=== PATIENT | male | born 1950 | race Caucasian/White ===

== ENCOUNTER 2019-07-17 09:57 | Inpatient (IN) ==
[2019-07-17 10:22] LABS: BASO# 0.06 X1000 (0.0-0.2); BASO% 0.5 % (0.0-0.8); EOS# 0.11 X1000 (0.0-0.7); EOS% 0.9 % (0.0-10.0); HEMATOCRIT 39.4 % (42.0-52.0); IMM GRAN# 0.02 X1000 (0.0-0.04); IMM GRAN% 0.2 % (0.0-0.5); LYMPH# 1.37 X1000 (1.2-3.4); MCH 30.7 PG (27-31); MCV 93.1 FL (81-99); MONO# 0.96 X1000 (0.11-0.59); MONO% 7.7 % (1.7-9.3); MPV 10.9 FL (7.4-10.4); NEUT% 79.7 % (42.2-75.2); PLT 225 X1000 (130-400); RBC 4.23 XMIL (4.7-6.1); RDW 14.2 % (11.5-14.5); WBC 12.42 X1000 (4.8-10.8)
--- NOTE | 2019-07-17 10:22 | PROVIDER DOCUMENTATION ---
HPI-Syncope/Dizziness - General Chief Complaint: Syncope Stated Complaint: FALL + LOC Time Seen by Provider: 07/17/19 10:01 Source: patient Allergies/Adverse Reactions: Patient Allergies Allergy/AdvReac Type Severity Reaction Status Date / Time No Known Allergies Allergy Verified 07/17/19 10:23 Home Medications: Home Medication List Medication Instructions Recorded Confirmed Last Taken Type Carvedilol 12.5 tab PO BID 05/28/15 07/17/19 07/16/19 History Ascorbate Calcium [Vitamin C] 1,000 mg PO BID 04/24/16 07/17/19 07/16/19 History Fish Oil/Dha/Epa [Fish Oil 1,200 1 each PO BID 04/24/16 07/17/19 07/16/19 History mg Fish Oil] Furosemide [Lasix] 20 mg PO DIRECTED 04/24/16 07/17/19 07/15/19 History Metformin HCl 2 tab PO BID 04/24/16 07/17/19 07/16/19 History Multivit-Min/FA/Lycopen/Lutein 1 each PO DAILY 04/24/16 07/17/19 07/16/19 History [Centrum Silver Tablet] Potassium Chloride 80 meq PO DIRECTED 04/24/16 07/17/19 07/15/19 History Tamsulosin HCl 0.4 mg PO DAILY 04/24/16 07/17/19 07/16/19 History Nitroglycerin [Nitrostat] 0.4 mg SL PRN PRN 11/14/16 07/17/19 Unknown History Amiodarone [Cordarone] 200 mg PO DAILY 04/05/18 07/17/19 07/16/19 History Apixaban [Eliquis] 2.5 mg PO BID 04/05/18 07/17/19 07/16/19 History Fexofenadine [Natasha] 180 mg PO DAILY 04/05/18 04/05/18 04/05/18 09:00 History Fluticasone 50 Mcg Nasal [place] 1 spray [place] DAILY 04/05/18 07/17/19 07/16/19 History [Flonase] Gabapentin 100 mg PO BID 04/05/18 07/17/19 07/16/19 History Atorvastatin Calcium [Lipitor] 1 tab PO DAILY 07/17/19 07/17/19 07/16/19 History Cetirizine HCl [Zyrtec] 1 cap PO DAILY 07/17/19 07/17/19 07/16/19 History Clopidogrel Bisulfate [Plavix] 1 tab PO DAILY 07/17/19 07/17/19 07/16/19 History Finasteride [Proscar] 1 tab PO DAILY 07/17/19 07/17/19 07/16/19 History - History of Present Illness-Syncope/Dizzy Nature of Presenting Problem: 69yom present to ER via EMS with c/o syncopal episode. Pt reports he went to restroom and had a BM and was walking into the living room when he passed out. Denies n/v. Reports some dizziness. Pt is on plavix and eliquis. Reports hx of CVA, afib, and pacemaker. pt A&Ox3 at present. O2 sat on arrival 85%, pt placed on 4L to increase to 92%. Prior Episodes: reports: single episode today Onset/Duration: reports: just prior to arrival Symptoms prior to episode: reports: lightheaded Context: reports: collapsed Loss of Consciousness: brief (seconds) Location of injury. (If syncope resulted in an injury.): reports: head (frontal) Current Symptoms: reports: short of breath, dizzy, headache. denies: fever, ch ills, nausea - Dizziness Dizziness Related Current/Associated Symptoms: reports: weakness, dizzy, lightheaded, syncope. denies: nausea/vomiting, blurred vision Review of Systems - Adult - REVIEW OF SYSTEMS - ADULT Constitutional: reports: no symptoms reported. denies: chills, fever Eyes: reports: no symptoms reported Ears, Nose, Mouth & Throat: reports: no symptoms reported Cardiovascular: reports: no symptoms reported. denies: chest pain Respiratory: reports: see HPI, shortness of breath Gastrointestinal: reports: no symptoms reported. denies: nausea, vomiting Genitourinary: reports: no symptoms reported Musculoskeletal: reports: no symptoms reported Integumentary: reports: no symptoms reported Neurological: reports: see HPI, dizziness/vertigo, syncope. denies: headache/migraines, numbness, paresthesia Psychiatric: reports: no symptoms reported Endocrine: reports: no symptoms reported Hematologic/Lymphatic: reports: no symptoms reported Allergic/Immunologic: reports: no symptoms reported All Other Systems: Reviewed and Negative Past History - Adult - PAST MEDICAL HISTORY-ADULT Review of Records: reports: Old Records Reviewed, Nursing Assessment Review, Medications Reviewed, Social history reviewed & non-contributory. Major Childhood Illnesses: reports: denies history Cardiovascular: reports: cardiac disease, A-Fib, HTN, hyperlipidemia, [place], pacemaker, other (cardiac arrest, CABG) Respiratory: reports: denies history Gastrointestinal: reports: denies history Obstetrical/Gynecological: reports: denies history Genitourinary: reports: denies history Musculoskeletal: reports: denies history Neurological: reports: CVA Endocrine/Immune: reports: Diabetes Other Conditions: reports: denies history Physical Exam-General - PHYSICAL EXAM-ADULT Initial Vital Signs Reviewed: Yes - CONSTITUTIONAL General Appearance: alert, mild distress - EYES Eyes: pink conjunctivae - HEAD, EARS, NOSE, MOUTH & THROAT HENMT: moist mucous membranes, normal ENT inspection - NECK Neck: non-tender, full range of motion, supple, normal inspection. negative: C- spine tenderness - RESPIRATORY Respiratory: lungs clear, normal breath sounds, no respiratory distress, no accessory muscle use - CARDIOVASCULAR Cardiovascular: no edema, irregularly irregular - GASTROINTESTINAL (ABDOMEN) Abdominal Exam: normal bowel sounds, non tender, soft - MUSCULOSKELETAL Back Exam: normal inspection Extremity: normal range of motion, normal inspection, no pedal edema, no calf tenderness. negative: deformity, erythema - SKIN Integumentary: normal color, warm/dry. negative: diaphoresis, ecchymosis, jaundice - NEUROLOGIC Neurologic: grossly normal, no motor/sensory deficits, other (R arm weakness from previous CVA) - PSYCHIATRIC Psych/Mental Status: oriented x 3 Progress - PLAN OF CARE/RESULTS Progress/Plan/Lab Results: Vital Signs - 8 hr 07/17/19 10:15 07/17/19 11:01 07/17/19 11:30 Temperature 97.8 F Pulse Rate 85 90 89 Respiratory Rate 20 20 20 Blood Pressure 143/91 138/86 137/83 O2 Sat by Pulse Oximetry 85 L 96 97 Laboratory Results - last 24 hr 07/17/19 07/17/19 07/17/19 10:10 10:10 10:10 WBC 12.42 H RBC 4.23 L Hgb 13.0 L Hct 39.4 L MCV 93.1 MCH 30.7 MCHC 33.0 RDW Std Deviation 14.2 Plt Count 225 MPV 10.9 H Immature Gran % (Auto) 0.2 Neut % (Auto) 79.7 H Lymph % (Auto) 11.0 L [place] % (Auto) 7.7 Eos % (Auto) 0.9 Baso % (Auto) 0.5 Immature Gran # (Auto) 0.02 Neut # (Auto) 9.90 H Lymph # (Auto) 1.37 Ector # (Auto) 0.96 H Eos # (Auto) 0.11 Baso # (Auto) 0.06 PT 14.7 INR 1.13 PTT (Actin FS) 27.8 D-Dimer, Quantitative Sodium 137 Potassium 4.7 Chloride 101 Carbon Dioxide 20 L Anion Gap 16 BUN 11 Creatinine 1.0 Estimated GFR/1.73 m2 > 60 BUN/Creatinine Ratio 11 Glucose 177 H Calculated Osmolality 278 Calcium 9.0 Magnesium Total Bilirubin 1.66 H AST 27 ALT 28 Alkaline Phosphatase 63 Creatine Kinase 103 Troponin T Ogs-[id number]-Xowkdyybiha Pept Total Protein 7.3 Albumin 4.6 Globulin 2.7 Albumin/Globulin Ratio 1.7 Plasma Lactate Urine Source Urine Color Urine Turbidity Urine pH Ur Specific [place] Urine Protein Ur Glucose (Stick) Ur Ketones (Stick) Urine Blood Urine Nitrite Urine Bilirubin Urobilinogen Dipstick Urine Leukocytes Urine WBC (Auto) Urine RBC (Auto) U Epithel Cells (Auto) Urine Bacteria (Auto) Urine Opiates Screen Ur Oxycodone Screen Ur Methadone, Qual Ur Barbiturates Screen Ur Phencyclidine Scrn Ur Amphetamines Screen U Benzodiazepines Scrn Urine Cocaine Screen U Cannabinoids Screen 07/17/19 07/17/19 07/17/19 10:10 10:10 10:10 WBC RBC Hgb Hct MCV MCH MCHC RDW Std Deviation Plt Count MPV Immature Gran % (Auto) Neut % (Auto) Lymph % (Auto) [place] % (Auto) Eos % (Auto) Baso % (Auto) Immature Gran # (Auto) Neut # (Auto) Lymph # (Auto) [place] # (Auto) Eos # (Auto) Baso # (Auto) PT INR PTT (Actin FS) D-Dimer, Quantitative 0.29 Sodium Potassium Chloride Carbon Dioxide Anion Gap BUN Creatinine Estimated GFR/1.73 m2 BUN/Creatinine Ratio Glucose Calculated Osmolality Calcium Magnesium Total Bilirubin AST ALT Alkaline Phosphatase Creatine Kinase Troponin T 0.010 Jrb-[id number]-Qkotvnbjjmc Pept 2634 H Total Protein Albumin Globulin Albumin/Globulin Ratio Plasma Lactate Urine Source Urine Color Urine Turbidity Urine pH Ur Specific [place] Urine Protein Ur Glucose (Stick) Ur Ketones (Stick) Urine Blood Urine Nitrite Urine Bilirubin Urobilinogen Dipstick Urine Leukocytes Urine WBC (Auto) Urine RBC (Auto) U Epithel Cells (Auto) Urine Bacteria (Auto) Urine Opiates Screen Ur Oxycodone Screen Ur Methadone, Qual Ur Barbiturates Screen Ur Phencyclidine Scrn Ur Amphetamines Screen U Benzodiazepines Scrn Urine Cocaine Screen U Cannabinoids Screen 07/17/19 07/17/19 07/17/19 10:10 10:57 12:24 WBC RBC Hgb Hct MCV MCH MCHC RDW Std Deviation Plt Count MPV Immature Gran % (Auto) Neut % (Auto) Lymph % (Auto) [place] % (Auto) Eos % (Auto) Baso % (Auto) Immature Gran # (Auto) Neut # (Auto) Lymph # (Auto) [place] # (Auto) Eos # (Auto) Baso # (Auto) PT INR PTT (Actin FS) D-Dimer, Quantitative Sodium Potassium Chloride Carbon Dioxide Anion Gap BUN Creatinine Estimated GFR/1.73 m2 BUN/Creatinine Ratio Glucose Calculated Osmolality Calcium Magnesium 1.3 L Total Bilirubin AST ALT Alkaline Phosphatase Creatine Kinase Troponin T [id number]-A-Ojwktrycdqr Pept Total Protein Albumin Globulin Albumin/Globulin Ratio Plasma Lactate 2.8 H Urine Source CLEAN CATCH Urine Color YELLOW Urine Turbidity CLEAR Urine pH 6.5 Ur Specific [place] 1.008 Urine Protein TRACE A Ur Glucose (Stick) NEGATIVE Ur Ketones (Stick) NEGATIVE Urine Blood NEGATIVE Urine Nitrite NEGATIVE Urine Bilirubin NEGATIVE Urobilinogen Dipstick NORMAL Urine Leukocytes NEGATIVE Urine WBC (Auto) <10 Urine RBC (Auto) <10 U Epithel Cells (Auto) <10 Urine Bacteria (Auto) NEGATIVE Urine Opiates Screen Ur Oxycodone Screen Ur Methadone, Qual Ur Barbiturates Screen Ur Phencyclidine Scrn Ur Amphetamines Screen U Benzodiazepines Scrn Urine Cocaine Screen U Cannabinoids Screen 07/17/19 12:24 WBC RBC Hgb Hct MCV MCH MCHC RDW Std Deviation Plt Count MPV Immature Gran % (Auto) Neut % (Auto) Lymph % (Auto) [place] % (Auto) Eos % (Auto) Baso % (Auto) Immature Gran # (Auto) Neut # (Auto) Lymph # (Auto) [place] # (Auto) Eos # (Auto) Baso # (Auto) PT INR PTT (Actin FS) D-Dimer, Quantitative Sodium Potassium Chloride Carbon Dioxide Anion Gap BUN Creatinine Estimated GFR/1.73 m2 BUN/Creatinine Ratio Glucose Calculated Osmolality Calcium Magnesium Total Bilirubin AST ALT Alkaline Phosphatase Creatine Kinase Troponin T Jcw-G-Glrvvlhteov Pept Total Protein Albumin Globulin Albumin/Globulin Ratio Plasma Lactate Urine Source Urine Color Urine Turbidity Urine pH Ur Specific [place] Urine Protein Ur Glucose (Stick) Ur Ketones (Stick) Urine Blood Urine Nitrite Urine Bilirubin Urobilinogen Dipstick Urine Leukocytes Urine WBC (Auto) Urine RBC (Auto) U Epithel Cells (Auto) Urine Bacteria (Auto) Urine Opiates Screen NONE DETECTED Ur Oxycodone Screen NONE DETECTED Ur Methadone, Qual NONE DETECTED Ur Barbiturates Screen NONE DETECTED Ur Phencyclidine Scrn NONE DETECTED Ur Amphetamines Screen NONE DETECTED U Benzodiazepines Scrn NONE DETECTED Urine Cocaine Screen NONE DETECTED U Cannabinoids Screen NONE DETECTED Orders Category Date Time Status Nursing- Obtain EKG ONCE Care 07/17/19 10:09 Active CHEST-PORTABLE [RAD] Stat Exams 07/17/19 11:[address] HEAD/C-SPINE W/O CONTRAST [CT] Stat Exams 07/17/19 10:06 Completed BLOOD CULTURE [BLDCUL] Stat Lab 07/17/19 12:07 Results BNP [PRO B-NATRIURETIC PEPTIDE] Stat Lab 07/17/19 10:10 Completed CBC WITH DIFF [HEME] Stat Lab 07/17/19 10:10 Completed CK PROFILE [SP CHEM] Stat Lab 07/17/19 10:10 Completed COMPREHENSIVE METABOLIC PANEL [CHEM] Stat Lab 07/17/19 10:10 Completed D-DIMER [COAG] Stat Lab 07/17/19 10:10 Completed LACTATE, PLASMA [CHEM] Stat Lab 07/17/19 10:57 Completed MAGNESIUM [CHEM] Stat Lab 07/17/19 10:10 Completed PT [PROTIME WITH INR] [COAG] Stat Lab 07/17/19 10:10 Completed PTT [COAG] Stat Lab 07/17/19 10:10 Completed TROPONIN T Stat Lab 07/17/19 10:10 Completed URINALYSIS W/POSS RFLX CULT [URINALYSIS] Stat Lab 07/17/19 12:24 Completed URINE DRUG SCREEN Stat Lab 07/17/19 12:24 Completed 0.9% Sodium Chloride Inj [Ns] 1,000 ml Med 07/17/19 10:28 Discontinued IV 999 mls/hr Amiodarone 150 mg/D5w [Cordarone 150 mg/D5w] Med 07/17/19 12:35 Discontinued 150 mg in 100 ml IV NOW Amiodarone 360 mg/D5w [Cordarone 360 mg/D5w] Med 07/17/19 11:14 Active 360 mg in 200 ml IV ONCE Amiodarone [Cordarone] Med 07/17/19 11:14 Discontinued 300 mg IV NOW ONE Furosemide [Lasix] Med 07/17/19 11:31 Discontinued 80 mg IV NOW ONE Magnesium Sulfate 4 gm/S.w.i. [Magnesium Sulfate 4 gm/S Med 07/17/19 11:39 Active .w.i] 4 gm in 100 ml IV NOW EKG [EKG] Stat Ther 07/17/19 10:09 Ordered Transfer/Admit Order [TRANSFER] Routine Transfer 07/17/19 12:21 Ordered Result Diagrams: 07/17/19 10:10 07/17/19 10:10 - REASSESSMENT Reassessment #1 Time Reassessed: 11:07 (called to bedside by RN. Rn noted runs of vtach on monitor. Repeata EKG completed. Pt reports palpitations and SOB) Status: worsening Reassessment #2 Time Reassessed: 11:10 (Discussed pt with Dr Pinedo, Dr West at bedside) Reassessment #3 Time Reassessed: 11:32 (Pacemaker company - [employer] called by RN states pt had a run of vtach 250bpm then went into vfib and was shocked by his defibralator. Pt had another run of vtach at 0330 and got ATP pacing. 0340 another run but pt broke on his own. Pacemaker company states their device cannot see past 0500 this morning, pt's syncopal episode was [id number].) - EKG 1 Time of EKG reading by physician:: 10:16 EKG Read and Signed by:: Arnoldo Pinedo EKG Interpretation (*Must complete 3 of following elements*): Abnormal Rate: 71 Rhythm: SR with 1st degree AV block with run of Vtach 2 Time of EKG reading by physician:: 11:04 EKG Read and Signed by:: Arnoldo Pinedo EKG Interpretation (*Must complete 3 of following elements*): Abnormal Rate: 99 Rhythm: SR with run of Vtach 3 Time of EKG reading by physician:: 11:07 EKG Read and Signed by:: Arnoldo Pinedo Rate: 99 Rhythm: SR with frequent and consecutive PVCs - XRAY 1 XRAY Study: Chest Impression: See EMR Report (FINDINGS: There is increased central vasculature and increased interstitial markings bilaterally ingesting pulmonary venous congestion and interstitial edema. There is stable chronic linear scarring in the right midlung zone. There is no discrete pleural fluid collection or pneumothorax. There are stable CABG changes and stable cardiomegaly. The pacemaker is in stable position. IMPRESSION: Cardiomegaly and pulmonary edema as described. Electronically signed by Washington Alvares 07/17/2019 12:24 PM) - CT/MRI 1 CT Study: Cervical Spine, Head Impression: See EMR Report (Head: There is left frontoparietal focal encephalomalacia that has developed during the interval. There is suggestion of mild white matter microangiopathy that can also be seen on the previous study. There is no definite acute infarct given the limited sensitivity of CT versus MRI. There is no discrete intracranial mass, mass effect, or intracranial hemorrhage. There is extensive chronic sinus mucosal disease that is also seen on the previous study. Surrounding soft tissues and bony structures are essentially unremarkable, otherwise. C-spine: There is facet arthropathy at C3-4 on the left. There is multilevel mild endplate degenerative change with small marginal osteophytes. This is causing varying degrees of mild to moderate foraminal and mild central canal narrowing. Otherwise, there is no discrete fracture, subluxation, or intrinsic osseous lesion. The surrounding soft tissues are essentially unremarkable. IMPRESSION: 1.Chronic appearing changes as described. No definite acute intracranial pathology. 2.Multilevel moderate degenerative changes but no evidence of fracture or other definite acute C-spine injury. Electronically signed by Washington Alvares 07/17/2019 11:23 AM) - CONSULTS/PCP/HOSPITALIST Notification #1 *Consult/PCP/Hospitalist*: Dr Mae Time Discussed: 12:07 (admit to ICU) Consult Disposition: Admit Departure - Departure Date of Disposition Decision: 07/17/19 Time of Disposition Decision: 12:08 DIAGNOSIS: Ventricular tachycardia, Hypomagnesemia Syncope Qualifiers: Syncope type: unspecified Qualified Code(s): R55 - Syncope and collapse Pulmonary edema Qualifiers: Chronicity: acute Qualified Code(s): J81.0 - Acute pulmonary edema Disposition: ADMITTED INPATIENT 09 Certified Medical Emergency: Emergent Condition: Critical Referrals and Follow-Ups: Binh Blount MD [Primary Care Provider] - - Critical Care Note This patient required my direct & personal management of CC.: Yes Total Time (mins): 48 Critical Care Statement: This patient required my direct personal management to treat or rule out processes, the absence of which, could potentiallly result in sudden, clinically significant life or limb threatening deterioration. Attestation - Physician/ MARIBETH Attestation Patient care was provided by Advanced Practice Provider:: Yes Advanced Practice Provider:: Michell Rodgers Advanced Practice Provider documentation review:: The Mid-level provider documentation, treatment plan and medical decision making was reviewed by the physician who agrees with all treatment and medical decision making by the MLP. The physician spent face to face time with patient:: Yes Advanced Practice Provider documentation review:: Supervising physician onsite and consulted in the evaluation and care of this patient. The physician did have a face to face encounter with the patient.
[2019-07-17] MEDS ORDERED: NS 1,000 ML IV ONE (10:28)
[2019-07-17 10:54] LABS: INR 1.13; PROTIME 14.7 Seconds (11.0-16.0); PTT 27.8 Seconds (22.3-41.8)
[2019-07-17 11:01] LABS: AGAP 16; ALB/GLOB RATIO 1.7; ALBUMIN 4.6 g/dL (3.5-5.0); ALKALINE PHOSPHATASE 63 U/L (32-122); BUN 11 mg/dL (8-22); CHLORIDE 101 mmol/L (98-107); CK PROFILE 103 U/L (24-204); COSMO 278; ESTIMATED GFR > 60; GLUCOSE 177 mg/dL (70-104); GOT 27 U/L (10-34); GPT 28 U/L (10-44); POTASSIUM 4.7 mmol/L (3.5-5.1); SODIUM 137 mmol/L (136-145); TCO2 20 mmol/L (25-35); TOTAL BILIRUBIN 1.66 mg/dL (0.20-1.00); TOTAL PROTEIN 7.3 g/dL (6.3-8.3)
[2019-07-17] MEDS ORDERED: CORDARONE 360 MG/D5W 360 MG/200 ML IV.SOLN IV ONE (11:14)
[2019-07-17] MEDS ORDERED: CORDARONE IV ONE (11:14)
--- NOTE | 2019-07-17 11:26 | Diag Imaging Result Doc PS360 ---
EXAM: CT HEAD/C-SPINE W/O CONTRAST INDICATION: fall +LOC TECHNIQUE: This exam was performed using automated exposure control, adjustment of mA or kV according to patient size, and/or use of iterative reconstruction technique. COMPARISON: CT head dated 05/28/2015 FINDINGS: Head: There is left frontoparietal focal encephalomalacia that has developed during the interval. There is suggestion of mild white matter microangiopathy that can also be seen on the previous study. There is no definite acute infarct given the limited sensitivity of CT versus MRI. There is no discrete intracranial mass, mass effect, or intracranial hemorrhage. There is extensive chronic sinus mucosal disease that is also seen on the previous study. Surrounding soft tissues and bony structures are essentially unremarkable, otherwise. C-spine: There is facet arthropathy at C3-4 on the left. There is multilevel mild endplate degenerative change with small marginal osteophytes. This is causing varying degrees of mild to moderate foraminal and mild central canal narrowing. Otherwise, there is no discrete fracture, subluxation, or intrinsic osseous lesion. The surrounding soft tissues are essentially unremarkable. IMPRESSION: 1.Chronic appearing changes as described. No definite acute intracranial pathology. 2.Multilevel moderate degenerative changes but no evidence of fracture or other definite acute C-spine injury. Electronically signed by Washington Alvares 07/17/2019 11:23 AM
[2019-07-17] MEDS ORDERED: LASIX IV ONE (11:31)
[2019-07-17] MEDS ORDERED: MAGNESIUM SULFATE 4 GM/S.W.I. 4 GM/100 ML IVPB IV ONE (11:39)
--- NOTE | 2019-07-17 12:26 | Diag Imaging Result Doc PS360 ---
EXAM: CHEST-PORTABLE INDICATION: sob dizzy TECHNIQUE: One view COMPARISON: 04/13/2019 FINDINGS: There is increased central vasculature and increased interstitial markings bilaterally ingesting pulmonary venous congestion and interstitial edema. There is stable chronic linear scarring in the right midlung zone. There is no discrete pleural fluid collection or pneumothorax. There are stable CABG changes and stable cardiomegaly. The pacemaker is in stable position. IMPRESSION: Cardiomegaly and pulmonary edema as described. Electronically signed by Washington Alvares 07/17/2019 12:24 PM
[2019-07-17 12:32] LABS: URINE SOURCE CLEAN CATCH
[2019-07-17 12:34] LABS: BILIRUBIN URINE NEGATIVE (NEGATIVE); BLOOD URINE NEGATIVE (NEGATIVE); COLOR YELLOW; GLUCOSE URINE NEGATIVE (NEGATIVE); KETONE URINE NEGATIVE (NEGATIVE); LEUKOCYTES URINE NEGATIVE (NEGATIVE); NITRITE URINE NEGATIVE (NEGATIVE); PH URINE 6.5; PROTEIN URINE TRACE mg/dL (NEGATIVE); SP GRAVITY URINE 1.008; TURBIDITY URINE CLEAR (CLEAR); UR EPITHELIAL CELLS <10 /HPF (<10); URINE BACTERIA NEGATIVE /HPF; URINE RBC <10 /HPF (<10); URINE WBC <10 /HPF (<10); UROBILINOGEN URINE NORMAL (NORMAL)
[2019-07-17] MEDS ORDERED: CORDARONE 150 MG/D5W 150 MG/100 ML IV.SOLN IV ONE (12:35)
[2019-07-17 12:55] LABS: UR AMPHETAMINES QUAL NONE DETECTED (NONE DETECT); UR BARBITUATES QUAL NONE DETECTED (NONE DETECT); UR BENZODIAZEPIN QUAL NONE DETECTED (NONE DETECT); UR CANNABINOIDS QUAL NONE DETECTED (NONE DETECT); UR COCAINE QUAL NONE DETECTED (NONE DETECT); UR METHADONE QUAL NONE DETECTED (NONE DETECT); UR OPIATES QUAL NONE DETECTED (NONE DETECT); UR OXYCODONE QUAL NONE DETECTED (NONE DETECT); UR PCP QUAL NONE DETECTED (NONE DETECT)
[2019-07-17] MEDS ORDERED: LOPRESSOR IV ONE ×2 (13:32→13:48)
[2019-07-17] MEDS ORDERED: LOPRESSOR ONE (13:34)
[2019-07-17] MEDS ORDERED: MAGNESIUM SULFATE IV ONE (14:06)
--- NOTE | 2019-07-17 14:37 | CARDIOLOGY CONSULTATION ---
DATE: 07/17/2019 REASON FOR CONSULTATION: Cardiology was consulted for syncope, ventricular tachycardia. HISTORY OF PRESENT ILLNESS: Mr. Arnulfo Cespedes is a 69-year-old gentleman with history of coronary artery disease, coronary artery bypass grafting, had stent placement, and was in [facility] and had biventricular AICD placed in 2018, subsequently had retrocardiac wire placed by Dr. Ramses Khanna as the lead to the coronary sinus could not be placed. This was in 04/2019. Subsequently, he was discharged home. The patient states that for the first week since discharge, he did not feel well. However, two weeks prior to coming into the hospital, he has felt much better. Last night, he passed out. This morning, he had two episodes of witnessed syncope at home. He came to the emergency room, and his defibrillator had fired. In addition, there was ATP pacing to get him back into sinus rhythm. However, he continued to have runs of sustained and ventricular tachycardia, which was monomorphic as well as polymorphic. The patient was in VT storm. The patient was started on amiodarone drip, 300 mg was given, subsequently continued with a drip. His magnesium was 1.3. He was given 4 grams of magnesium intravenously. However, he continued to have episodes of ventricular tachycardia storm, following which he was given 5 mg of Lopressor, followed by another 5 mg of Lopressor, in addition to another gram of magnesium given intravenously. This helped in controlling the ventricular tachycardia. The patient, prior to this, did not complain of any chest pain. There is no history of any orthopnea or paroxysmal nocturnal dyspnea recently. REVIEW OF SYSTEMS: A 14-point review of systems was done. GI: There is no history of nausea, vomiting, diarrhea. There is no history of hematemesis or melena. Central Nervous System: No focal weakness to suggest a CVA or TIA. Genitourinary: There is no dysuria or hematuria. PAST MEDICAL HISTORY: 1. Coronary artery disease, coronary artery bypass grafting, triple bypass in [facility] with MCKEON to left anterior descending artery, SVG to marginal, SVG to RCA. This was in 1996. Had stent placement in 01/2019. He had AICD biventricular placed with retrocardiac wire placement by Dr. Ramses Khanna and Dr. Guaman in 04/2019. Prior to that, he had an AICD in 2017. He has a Guidant device. 2. History of hypertension. 3. History of atrial fibrillation. 4. Diabetes. HOME MEDICATIONS: Include amiodarone 200 mg a day, Coreg 12.5 mg twice daily, Lasix 20 mg a day, potassium supplements, atorvastatin 80, [place]-3, Plavix 75, Eliquis 2.5 mg b.i.d., multivitamins, metformin 500 mg b.i.d., gabapentin, fluticasone propionate inhalers, Zyrtec as needed, Proscar 5 mg, tamsulosin 0.4 mg. ALLERGIES: He is not known to be allergic to any medications. SOCIAL HISTORY: He does not smoke. There is no history of alcohol abuse. PHYSICAL EXAMINATION: Vital Signs: Blood pressure 110/80. Heart: First and second heart sounds were heard. There was a soft murmur. Respiratory: Normal air entry. There were no crepitations and rhonchi. Abdomen: Soft, nontender. There was no guarding or rigidity. Bowel sounds were heard. Respiratory: Bibasilar inspiratory crepitations were noted. Abdomen: Soft, nontender. There was no guarding or rigidity. Bowel sounds were heard. Central Nervous System: Alert, was moving all 4 extremities. Extremities: No pedal edema. ASSESSMENT AND PLAN: 1. Mr. Arnulfo Cespedes is a 69-year-old gentleman with history of coronary artery disease, status post 3-vessel coronary artery bypass grafting in 2017, had stent placement recently, in addition to upgrade of his automatic implantable cardioverter- defibrillator. He has a Guidant device biventricular automatic implantable cardioverter- defibrillator. His coronary sinus lead could not be placed, and he had a retrocardiac wire placed by Dr. Ramses Khanna and Dr. Guaman at [place]. He has also has history of diabetes and hypertension. He comes with complaints of 3 episodes of syncope secondary to ventricular tachycardia. He is in ventricular tachycardia storm. Currently, he is getting amiodarone drip per standard protocol. 2. He was given magnesium 4 grams intravenously. He was noted to be hypomagnesemic with a magnesium of 1.3, which could have triggered this ventricular tachycardia as well. 3. We gave him Lopressor 5 mg intravenously x2 in the emergency room, which quietened his ventricular tachycardia storm. Would recommend continuing with intravenous amiodarone. In addition, I will give him intravenous Lopressor 5 mg every 6 hours today. He has been on Coreg and amiodarone has been on amiodarone at home as well. Will restart Coreg from am, and after the amiodarone drip is finished will place him on amiodarone po 400 mg BID 4. We will get serial cardiac enzymes. They are likely to be abnormal given his automatic implantable cardioverter-defibrillator firing, in addition to the ventricular tachycardia storm. Regardless, we will see if there is any trend of worsening cardiac enzymes. 5. His first set of cardiac enzymes were negative. 6. We will check a serum TSH, T3, T4. 7. WBC 12.42, hemoglobin 13.0, hematocrit 39, platelet count of 225. We will check blood work again in the morning. 8. Chest x-ray suggestive of heart failure. He received Lasix iv in the ER, will start po Lasix from am. 9. His echocardiogram in the past revealed severe left ventricular dysfunction, ejection fraction of 25% to 29%. We will reassess ejection fraction by echocardiogram in the morning. 10. He is on not on angiotensin-converting enzyme inhibitors at the moment. In the past he has been on losartan and has no history of angioedema, we will start him on Entresto in the morning. Thank you for the consult. Will follow hospital course. cc: MD KEVON Anthony
[2019-07-17] MEDS ORDERED: NITROGLYCERIN SL PRN (14:38)
[2019-07-17 15:28] LABS: FREE T4 1.18 ng/dL (0.93-1.70)
[2019-07-17 15:36] LABS: TSH 6.81 uIUmL (0.27-4.20)
--- NOTE | 2019-07-17 15:54 | HISTORY AND PHYSICAL ---
CHIEF COMPLAINT: Passed out at home, twice this morning and once last night. HISTORY OF PRESENT ILLNESS: He was found to have episodes of ventricular tachycardia in the emergency room. He was seen and treated by Dr. Mae, mental health associate. It was determined that his defibrillator went off once unit director, but did not go off a 2nd time because of ventricular storm. Brief discussion was made with Dr. Mae, who felt that his defibrillator pacer was acting appropriately. He was given an amiodarone drip in the emergency room and IV magnesium. There was resolution of his episodes of ventricular tachycardia by the time he arrived to intensive care. Chest x-ray showed cardiomegaly and bilateral pulmonary venous congestion and interstitial edema. Head CT revealed chronic changes with no acute intracranial pathology. There was frontal encephalomalacia. There is history of stroke with right arm weakness distal to his elbow. There was no evidence of C-spine injury. He did not complain of any discomfort related to his a.m. fall today. Cardiac history is significant for bypass grafts after a heart attack in 1996. He had a defibrillator pacer placed in 2016 and again in January, in [place]. His cardiologists included Dr. Guaman and Dr. Khanna. LABORATORY: In the emergency room revealed normal urinalysis. Hemoglobin was 13.0, hematocrit 39.4, white blood count 12,400. Magnesium low at 1.3. Basic metabolic profile normal. BUN was 11, creatinine 1.0 glucose 177. Total bilirubin 1.6. AST and ALT normal, as well as alkaline phosphatase. CPK was 103 and troponin T was 0.01. ProBNP was 2,634. Plasma lactate was 2.8. Blood cultures were drawn. PAST MEDICAL HISTORY: Significant for coronary artery disease, cardiomyopathy with ejection fraction 27 to 30%, pacer defibrillator, sleep apnea, history of atrial fibrillation, history of hypertension, history of diabetes. CURRENT MEDICATIONS: Amiodarone 200 mg daily, Natasha 180 mg daily, multivitamins 1 daily, potassium chloride 10 mEq 8 every Thursday, Flomax 0.4 mg daily, Lasix 80 mg twice weekly, Eliquis 2.5 mg b.i.d., vitamin C 500 mg daily, atorvastatin 80 mg 1 daily, carvedilol 12.5 mg b.i.d., Plavix 75 mg daily, Proscar 5 mg daily, fish oil b.i.d., Flonase nasal spray daily, gabapentin 100 mg b.i.d., metformin 500 mg 2 b.i.d., nitroglycerin sublingual p.r.n. ALLERGIES: None known. REVIEW OF SYSTEMS: Cardiac history as above. History of a stroke 3 years ago. There is no history of recent weight loss. He has some shortness of breath with usual activities, but is able to walk in the grocery store without problems and also walk to his mailbox. Walking up stairs is limited. SOCIAL HISTORY: Smoked more than 1 pack daily until his first heart attack in 1996. Social history for 3 years. He denies alcohol usage. PHYSICAL EXAMINATION: VITAL SIGNS: Temperature 98.6 degrees, heart rate 60, respirations 20, blood pressure 101/60, O2 saturation 97% on 4 L nasal oxygen. HEENT: Pupils equal, round, and reactive to light. Tympanic membranes without inflammation. Pharynx benign with no erythema or exudate. NECK: Supple with no mass or lymphadenopathy. There is no carotid bruit. HEART: Regular in rate and rhythm with no murmur or gallop. In the emergency room, he had several episodes of brief ventricular tachycardia. This stabilized after amiodarone and magnesium. ABDOMEN: Soft with no mass, tenderness, or organomegaly. EXTREMITIES: No cyanosis, clubbing, or edema. IMAGING: Chest x-ray showed some pulmonary edema. IMPRESSIONS: 1. Episodes of ventricular tachycardia with syncope. 2. Coronary artery disease. 3. Cardiomyopathy. 4. Diabetes. 5. Hypertension. 6. 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 7. Pulmonary edema. PLAN: Admit for further evaluation and treatment to intensive care unit. Orders are per Dr. Mae. CPAP is added at bedtime. cc: MD Reji Galloway MD
[2019-07-17] MEDS ORDERED: LOPRESSOR IV SCH (16:00)
[2019-07-17] MEDS: HUMULIN R SUBQ SCH ×2 (16:19→20:18)
[2019-07-17] MEDS: GLUCOPHAGE PO SCH (16:20)
--- NOTE | 2019-07-17 17:10 | EKG Report ---
Test Performed on : 07/17/2019 11:04:22 AM Test Reason : REPEAT Blood Pressure : / mmHG Vent. Rate : 099 BPM Atrial Rate : 088 BPM P-R Int : 142 ms QRS Dur : 136 ms QT Int : 408 ms P-R-T Axes : 008 -19 166 degrees QTc Int : 523 ms Sinus rhythm. with frequent and consecutive premature ventricular complexes. Nonspecific intraventricular block T wave abnormality, consider lateral ischemia Abnormal ECG When compared with ECG of 17-JUL-2019 10:16, (Unconfirmed) fusion complexes are no longer present MT interval has decreased Unconfirmed Result
[2019-07-17] MEDS ORDERED: MAGNESIUM SULFATE ONE (17:12)
[2019-07-17] MEDS ORDERED: CORDARONE 540 MG in D5W 289.2 ML IV ONE (19:00)
[2019-07-17] MEDS: NEURONTIN PO SCH (20:18)
[2019-07-17] MEDS: VITAMIN C PO SCH (20:18)
[2019-07-17] MEDS: FISH OIL CONCENTRATE PO SCH (20:18)
[2019-07-17] MEDS ORDERED: COREG PO SCH (21:00)
[2019-07-17] MEDS ORDERED: ELIQUIS PO SCH (21:00)
[2019-07-17] MEDS: LOPRESSOR IV SCH (22:14)
[2019-07-18] MEDS: LOPRESSOR IV SCH (04:57)
[2019-07-18] MEDS: HUMULIN R SUBQ SCH ×2 (06:12→11:14)
[2019-07-18 06:46] LABS: AGAP 15; ALB/GLOB RATIO 1.6; ALBUMIN 4.1 g/dL (3.5-5.0); ALKALINE PHOSPHATASE 56 U/L (32-122); BUN 12 mg/dL (8-22); CHLORIDE 103 mmol/L (98-107); COSMO 283; CREATININE 0.9 mg/dL (0.7-1.2); ESTIMATED GFR > 60; GLUCOSE 137 mg/dL (70-104); GOT 19 U/L (10-34); GPT 22 U/L (10-44); MAGNESIUM 1.7 mg/dL (1.5-2.7); POTASSIUM 3.7 mmol/L (3.5-5.1); SODIUM 141 mmol/L (136-145); TCO2 23 mmol/L (25-35); TOTAL BILIRUBIN 2.28 mg/dL (0.20-1.00); TOTAL PROTEIN 6.7 g/dL (6.3-8.3)
--- NOTE | 2019-07-18 07:00 | Diag Imaging Result Doc PS360 ---
EXAM: CHEST-PORTABLE HISTORY: Pulm Edema TECHNIQUE: Chest single view COMPARISON: 07/17/2019 FINDINGS: The lungs are well expanded. The heart is enlarged. There are sternal wires and a left-sided pacemaker. Interval decrease in the pulmonary edema. Questionable trace right effusion. IMPRESSION: Interval improvement Electronically signed by Mikal Broderick 07/18/2019 6:58 AM
--- NOTE | 2019-07-18 08:02 | EKG Report ---
Test Performed on : 07/17/2019 11:07:01 AM Test Reason : REPEAT Blood Pressure : / mmHG Vent. Rate : 099 BPM Atrial Rate : 084 BPM P-R Int : 152 ms QRS Dur : 146 ms QT Int : 410 ms P-R-T Axes : 087 -25 143 degrees QTc Int : 526 ms Sinus rhythm. with frequent and consecutive premature ventricular complexes. Nonspecific intraventricular block Abnormal ECG When compared with ECG of 17-JUL-2019 11:04, (Unconfirmed) No significant change was found Unconfirmed Result
[2019-07-18] MEDS ORDERED: MAGNESIUM SULFATE 2 GM/S.W.I. 2 GM/50 ML IVPB IV ONE ×2 (08:14→08:43)
[2019-07-18] MEDS: VITAMIN C PO SCH (08:40)
[2019-07-18] MEDS: FISH OIL CONCENTRATE PO SCH (08:47)
[2019-07-18] MEDS: NEURONTIN PO SCH (08:50)
[2019-07-18] MEDS: GLUCOPHAGE PO SCH (08:50)
[2019-07-18] MEDS ORDERED: KLOR-CON PO SCH (09:00)
[2019-07-18] MEDS ORDERED: ZYRTEC PO SCH (09:00)
[2019-07-18] MEDS ORDERED: PROSCAR PO SCH (09:00)
[2019-07-18] MEDS ORDERED: ENTRESTO 24 MG-26 MG TABLET PO SCH (09:00)
[2019-07-18] MEDS ORDERED: COREG PO SCH (09:00)
[2019-07-18] MEDS ORDERED: CORDARONE PO SCH (09:00)
[2019-07-18] MEDS ORDERED: LASIX PO SCH (09:00)
[2019-07-18] MEDS ORDERED: PLAVIX PO SCH (09:00)
[2019-07-18] MEDS ORDERED: FLONASE NAS SCH (09:00)
[2019-07-18 11:08] VITALS: BP 129/83
[2019-07-18] MEDS ORDERED: CORDARONE PO ONE (13:00)
--- NOTE | 2019-07-18 18:56 | ECHO REPORT ---
ORDER DATE: 07/18/2019 INDICATION: Cardiogenic shock. Ventricular tachycardia. CHF. Coronary heart disease. SUMMARY OF M-MODE MEASUREMENTS: Left ventricle end diastole: 7.4 cm. Left ventricle end systole: 6.5 cm. Posterior wall: 1.1 cm. Interventricular septum: 1.1 cm. Left atrium: 5.0 cm. Aortic diameter: 4.1 cm. SUMMARY OF 2-DIMENSIONAL IMAGING: The study was very difficult. Optison was added to optimize the endocardium. 1. Left ventricular chamber is markedly dilated. The left ventricular end diastolic volume is somewhere in the range of 460 mL. The end systolic volume is somewhere in the range of 350 mL. The ejection fraction is significantly impaired, estimated at 20% to 22%. There is more impairment at the level of the posterolateral wall. The septum shows better contractility. 2. The right ventricle is moderately enlarged. Both atria are dilated. 3. Mitral valve shows a moderate to moderately severe degree of regurgitation. 4. Pulsed wave Doppler of mitral inflow shows "normal" E/A ratio. Ratio is 1.4. 5. Tissue Doppler of septal and lateral mitral annulus averages 4 cm. 6. There is impaired left ventricular relaxation. 7. Diastolic dysfunction is present. 8. Pulsed wave Doppler of pulmonary venous flow shows predominance of the diastolic component. The deceleration slope of the diastolic component is short, indicating elevation of the left atrial pressure. 9. The pulmonic valve is unremarkable. 10.The tricuspid valve shows a mild degree of regurgitation. 11.Pulmonary pressure is estimated to be in the order of 44 to 49 mmHg. 12.The patient appears to be in low cardiac output state. LVOT VTI is only 9.27 cm. 13.The patient has a large LVOT dimension. SUMMARY: This study shows: 1. Markedly dilated left ventricle with severely impaired systolic function, ejection fraction in the range of 20% to 22%. 2. Dilatation of left atrium. 3. Mildly enlarged right-sided chamber. 4. Moderate to moderately severe degree of mitral regurgitation. 6. Diastolic dysfunction is present. 7. Pulmonary pressure is estimated in the range of 44 to 49 mmHg. Clinical correlation is recommended. cc: MD Reji Reyna MD
[2019-07-18] MEDS ORDERED: LIPITOR PO SCH (21:00)
--- NOTE | 2019-07-18 22:03 | DISCHARGE SUMMARY ---
ADMISSION DATE: 07/17/2019 DISCHARGE DATE: 07/18/2019 DISCHARGING DIAGNOSES: 1. Syncope due to refractory ventricular tachycardia, status post automated implantable cardioverter-defibrillator firing. 2. Hypomagnesemia. 3. Ischemic cardiomyopathy congestive heart failure. The EF 30%. Status post bypass surgery. Automated implantable cardioverter-defibrillator with revision. History of stents in the left main and vein graft to the circumflex in 2019. 4. Type 2 diabetes. 5. Hyperlipidemia. 6. Peripheral arterial disease. Left proximal internal carotid artery was occluded. 7. Left-sided stroke syndrome. 8. Benign prostatic hyperplasia. 4K score 7.5. 9. Complicated diabetes. CONSULTS: Dr. Mae. BRIEF HISTORY: Please see the H and P that was done by Dr. Kwong. In brief, he is a 69-year-old white male with complicated diabetes, CAD, ischemic cardiomyopathy, refractory V-Fib arrest, status post AICD with revision with above problems who was admitted to the hospital in the ICU with syncope associated with the AICD firing. EKG showed nonsustained ventricular tachycardia. Magnesium 1.3. Admitted in the ICU. The patient was seen by Dr. Mae. He was replaced on Mag sulfate 2 g x2 and he was stable. Dr. Mae has been transferred to [facility] for further evaluation for EP studies. LABS: CBC: White cell count 12.5, hematocrit 39, platelets 225,000. Sodium 141, potassium 3.7, BUN 12, creatinine 0.9 glucose 137, magnesium 1.7. LFTs were normal. ProBNP 2600. TSH is slightly high. Free T4 is normal. Urinalysis is clear. Urine tox screen was negative. EKG showed nonsustained ventricular tachycardia. Echocardiography findings: Markedly dilated left ventricle. EF is 20 percent. Dilatation of left atrial chamber. [id number] MR, mild pulmonary hypertension, diastolic dysfunction. The end-diastolic left ventricle is 74 mm, systole 65 mm. Left atrial is 50 mm. Chest x-ray: Cardiomegaly with CHF. CT head and CT C-spine: No acute intracranial pathology. No evidence of fracture. Multilevel moderate DJD changes noted. DISCHARGING INSTRUCTIONS: Coreg 12.5 p.o. b.i.d., potassium 10 mEq b.i.d., Flomax 0.4 daily, multivitamin 1 tablet daily, metformin 500 two tablets p.o. b.i.d., Lasix 20 mg daily, nitroglycerin as needed, Cordarone 200 daily, Eliquis 2.5 p.o. b.i.d., Flonase nasal spray as needed, Lipitor 80 mg daily, Plavix 75 daily, Proscar 5 mg daily, Cetirizine 10 mg daily and followup from [facility] after evaluation and EP studies. cc: MD Reji Yusuf MD Luis N. Villanueva, MD
== END 2019-07-18 11:35 | disposition short-term general hospital (02) | DRG 308 ==
LOC: SUPCPDRO → ED 09:57 → ICU 13:00
PROVIDERS: ADMIT Internal Medicine Cardiovascular Disease; ATTEND Internal Medicine Cardiovascular Disease

== ENCOUNTER 2020-01-03 09:28 | Observation (INO) ==
[2020-01-03 11:04] LABS: INR 1.24; PROTIME 15.8 Seconds (11.0-16.0)
[2020-01-03 11:06] LABS: BASO# 0.16 X1000 (0.0-0.2); BASO% 1.7 % (0.0-0.8); EOS# 0.54 X1000 (0.0-0.7); EOS% 5.9 % (0.0-10.0); HEMATOCRIT 40.7 % (42.0-52.0); HEMOGLOBIN 12.8 g/dL (14.0-18.0); IMM GRAN# 0.02 X1000 (0.0-0.04); IMM GRAN% 0.2 % (0.0-0.5); LYMPH# 1.89 X1000 (1.2-3.4); LYMPH% 20.6 % (20.5-51.1); MCH 28.9 PG (27-31); MCHC 31.4 g/dL (33-37); MCV 91.9 FL (81-99); MONO% 10.9 % (1.7-9.3); MPV 10.4 FL (7.4-10.4); NEUT# 5.56 X1000 (1.4-6.5); NEUT% 60.7 % (42.2-75.2); PLT 333 X1000 (130-400); RBC 4.43 XMIL (4.7-6.1); RDW 18.2 % (11.5-14.5); WBC 9.17 X1000 (4.8-10.8)
--- NOTE | 2020-01-03 11:17 | EKG Report ---
Test Performed on : 01/03/2020 11:03:11 AM Test Reason : chest pain Blood Pressure : / mmHG Vent. Rate : 080 BPM Atrial Rate : 080 BPM P-R Int : 236 ms QRS Dur : 174 ms QT Int : 480 ms P-R-T Axes : 000 253 067 degrees QTc Int : 553 ms AV dual-paced rhythm with prolonged AV conduction Biventricular pacemaker detected Abnormal ECG When compared with ECG of 27-AUG-2019 20:34, No significant change was found Confirmed by Saleem River MD ([id number]) on 01/03/2020 3:05:44 PM
[2020-01-03 11:20] LABS: CALCIUM 10.9 mg/dL (8.8-10.2); CREATININE 1.6 mg/dL (0.7-1.2); MAGNESIUM 1.9 mg/dL (1.5-2.7); POTASSIUM 4.9 mmol/L (3.5-5.1)
[2020-01-03] MEDS: MAG-OX PO SCH ×2 (12:59→16:11)
[2020-01-03] MEDS: INVANZ 1 GM/NS 1 GM/50 ML IVPB IV SCH ×2 (13:40→16:07)
[2020-01-03] MEDS ORDERED: NS 250 ML ONE (14:55)
--- NOTE | 2020-01-03 18:53 | HISTORY AND PHYSICAL ---
SUBJECTIVE: This is a direct admit from the office for a PICC line for chronic prostatitis due to Escherichia coli. It is resistant to all antibiotics, including Levaquin and Macrobid. He also had no response after treating with 6 weeks of p.o. antibiotics. He continues to have hesitancy, frequency, and dysuria. Repeat cultures after treating on 12/18 showed E coli. Basically admitted to the hospital for a PICC line and home IV antibiotics for at least 6 weeks. The patient has been on Eliquis. I spoke to the PICC team. They can put the PICC line and also arrange IV antibiotics at home. The patient will be discharged after getting the PICC line and also a Label Press Operator consult. PAST MEDICAL HISTORY: BPH, chronic prostatitis, congestive heart failure, systolic dysfunction, EF 30%, CAD, type 2 diabetes, acid reflux disease, hyperlipidemia, benign nasal polyps, peripheral arterial disease, completely occluded left ICA, left stroke syndrome, elevated PSA, 4K score was 7.5, and type 2 diabetes with neuropathy. PAST SURGICAL HISTORY: AICD, bypass surgery, left shoulder surgery, stent in the left main and the vein graft in the circumflex, and radiofrequency ablated for ventricular tachycardia with persistent VFib at [facility]. MEDICINES: Potassium 40 mEq p.o. b.i.d., metformin 1000 p.o. b.i.d., Cordarone 200 daily, Eliquis 5 mg p.o. b.i.d., Flonase nasal spray 1 spray on a daily basis, gabapentin 100 p.o. b.i.d., Lipitor 80 mg daily, Plavix 75 daily, finasteride 5 mg daily, cetirizine 10 daily, Klonopin 0.5 p.o. b.i.d., mag oxide 1200 p.o. t.i.d., aspirin 81 mg daily, sotalol 80 p.o. b.i.d., torsemide 20 mg as needed, Lexapro 10 daily, ProAmatine 10 mg p.o. t.i.d., and Macrobid as directed. ALLERGIES: Not known. SOCIAL HISTORY: He is living with a girlfriend and retired from [employer]. No smoking. No alcohol. No drug abuse. FAMILY HISTORY: Father of old age. Mom of pneumonia and COPD. HEALTH MAINTENANCE: Vaccinations were refused. LAST PROSTATE EXAM: November 2019. REVIEW OF SYSTEMS: HEENT: No headache. No vision problem. No earache. No sore throat. Neck: No goiter. No lymphadenopathy. No bruit. Cardiopulmonary: No chest pain, shortness of breath, PND, or orthopnea. History of ventricular fibrillation arrest status post AICD radiofrequency ablation on sotalol and amiodarone and replacing the potassium and magnesium. Gastrointestinal: No nausea, vomiting, or abdominal pain. GENITOURINARY: History of hesitancy, frequency, dysuria, trouble of urination. Extremities: No swelling of legs. No joint pain. Neurologic: No focal symptoms or weakness. PHYSICAL EXAMINATION: VITAL SIGNS: Temperature is 97.9 degrees, pulse 75, blood pressure is stable, oxygen saturation 95% on room air. HEENT: Atraumatic, normocephalic. Pupils equal and reacting to light. TMs are normal, nose and throat within normal limits. NECK: Supple. No lymphadenopathy. No goiter. CHEST: Bilateral air entry. HEART: Sounds are regular. ABDOMEN: Belly is soft and nontender. GENITOURINARY: The prostate is slightly tender. Heme-negative stools. EXTREMITIES: No peripheral edema or cyanosis. NEUROLOGIC: No obvious neurological deficits. INVESTIGATIONS: White cell count 9.1, hematocrit 40, platelets 333,000. PT 15, INR 1.2. SMA 7: BUN 30, creatinine 1.6. Magnesium and potassium are normal. ASSESSMENT AND PLAN: A 69-year-old white gentleman with extensive cardiac history admitted to the hospital with benign prostatic hypertrophy with prostatitis and not able to treat with outpatient antibiotics resistant with Escherichia coli. PLAN: 1. PICC line. 2. Label Press Operator for IV Invanz 1 g q. 24 for 6 weeks. 3. VFib arrest status post radiofrequency ablation and continue on potassium and magnesium and present drugs. 4. Reconcile home medicines. 5. Once they arrange the antibiotics, he will be discharged. cc: Ross Blount MD [facility]
[2020-01-03] MEDS: PROSCAR PO SCH (19:59)
[2020-01-03] MEDS: XANAX PO PRN (19:59)
[2020-01-03] MEDS: KLOR-CON PO SCH (19:59)
[2020-01-03] MEDS ORDERED: ELIQUIS PO SCH (21:00)
[2020-01-04] MEDS: KLOR-CON PO SCH ×2 (09:02→20:45)
[2020-01-04] MEDS: ZYRTEC PO SCH (09:02)
[2020-01-04] MEDS: MAG-OX PO SCH ×3 (09:02→16:42)
[2020-01-04] MEDS: CORDARONE PO SCH (09:03)
[2020-01-04] MEDS: LIPITOR PO SCH (09:03)
[2020-01-04] MEDS: INVANZ 1 GM/NS 1 GM/50 ML IVPB IV SCH (09:06)
[2020-01-04] MEDS: ASPIRIN PO SCH (09:07)
[2020-01-04 14:21] LABS: BASO# 0.16 X1000 (0.0-0.2); BASO% 1.6 % (0.0-0.8); EOS# 0.39 X1000 (0.0-0.7); HEMATOCRIT 36.2 % (42.0-52.0); HEMOGLOBIN 11.4 g/dL (14.0-18.0); LYMPH# 1.76 X1000 (1.2-3.4); LYMPH% 17.9 % (20.5-51.1); MCH 28.8 PG (27-31); MCHC 31.5 g/dL (33-37); MCV 91.4 FL (81-99); MONO% 9.2 % (1.7-9.3); MPV 10.2 FL (7.4-10.4); NEUT# 6.61 X1000 (1.4-6.5); NEUT% 67.3 % (42.2-75.2); PLT 266 X1000 (130-400); RBC 3.96 XMIL (4.7-6.1); RDW 17.9 % (11.5-14.5); WBC 9.82 X1000 (4.8-10.8)
[2020-01-04 14:27] LABS: INR 1.21; PROTIME 15.5 Seconds (11.0-16.0)
[2020-01-04 14:28] LABS: PTT 31.6 Seconds (22.3-41.8)
[2020-01-04 14:59] LABS: EOS 8 % (1-10); LYMPHS 16 % (21-51); POIKILOCYTOSIS 1+; SEGS 72 % (42-75)
[2020-01-04 15:00] LABS: HOWELL-JOLLY BODIES OCCASIONAL; LARGE PLATELETS OCCASIONAL
[2020-01-04 15:04] LABS: SCHISTOCYTES 1+
[2020-01-04] MEDS: XANAX PO PRN (16:39)
--- NOTE | 2020-01-04 18:41 | PROGRESS NOTE ---
DATE: 01/04/2020 SUBJECTIVE: The patient had a PICC line placed on the right side. He has been on anticoagulation. Throughout the weekend, the bleeding continues, unable to stop with a pressure bandage. I spoke to the nurses twice. I also spoke to the social insurance specialist to arrange IV antibiotics at home for 6 weeks. No other complaints. Repeat urine cultures are gram-negative rods. PHYSICAL EXAMINATION: Vital signs: Temperature is 98 degrees. Vitals are stable. Physical exam, no change LABORATORY: CBC: White cell count 9.8, hematocrit 36, platelet 266,000, PT/INR is normal. ASSESSMENT: 1. Recurrent urinary tract infection due to the prostatitis. 2. Status post automatic implantable cardioverter-defibrillator (AICD) with ventricular fibrillation arrest and ischemic cardiomyopathy. PLAN OF CARE: This afternoon, the bleeding was not able to be stopped. Discontinue PICC line and follow up on CBC and then social insurance specialist arranged IV antibiotics at the outpatient infusion center once a day with Invanz 1 g every day for 6 weeks. Patient and indicated we are going to keep him overnight to stop the bleeding before he comes home. He is already receiving IV antibiotics in the hospital. Continue other medications for the underlying medical problems. In the meantime, I am going to hold the Eliquis for 1 week and will reinsert PICC line at a later date. LEVEL OF DOCUMENTATION: 25 minutes. cc: Ross Blount MD
[2020-01-04] MEDS: PROSCAR PO SCH (20:45)
[2020-01-05] MEDS: ASPIRIN PO SCH (09:12)
[2020-01-05] MEDS: ZYRTEC PO SCH (09:13)
[2020-01-05] MEDS: CORDARONE PO SCH (09:13)
[2020-01-05] MEDS: MAG-OX PO SCH (09:13)
[2020-01-05] MEDS: KLOR-CON PO SCH (09:13)
[2020-01-05] MEDS: LIPITOR PO SCH (09:14)
[2020-01-05] MEDS: INVANZ 1 GM/NS 1 GM/50 ML IVPB IV SCH (10:40)
[2020-01-05 11:15] VITALS: BP 101/76
--- NOTE | 2020-01-09 08:40 | DISCHARGE SUMMARY ---
ADMISSION DATE: 01/03/2020 DISCHARGE DATE: 01/05/2020 DISCHARGING DIAGNOSIS: Chronic prostatitis due to extended-spectrum B-lactamase Escherichia coli, not able to improve with outpatient antibiotics with a combination of doxycycline and Macrobid which are resistant. SECONDARY DIAGNOSES: 1. Benign prostatic hypertrophy, elevated prostate-specific antigen 4Kscore was 7.5. 2. Chronic systolic heart failure, ejection fraction of 30% due to ischemic cardiomyopathy with recurrent ventricular fibrillation arrest, status post automatic implantable cardioverter defibrillator. 3. Type 2 diabetes. 4. Acid reflux disease. 5. Hyperlipidemia. 6. 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 7. Peripheral neuropathy due to diabetes. PROCEDURES: Peripherally inserted central catheter line on the right side discontinued due to excessive bleeding from aspirin, Plavix, and Eliquis. BRIEF HISTORY: Please see the H and P that was done on 01/03/2020. In brief, he is a 69-year- old, white gentleman admitted to the hospital basically for observation for PICC line outpatient IV antibiotics with Invanz 1 g q.24 hours for 6 weeks. I spoke to the catheterization lab team. they can perform without stopping Eliquis for a PICC line. The patient had successful PICC line. However, it was discontinued due to excessive bleeding. adoption services manager consult was obtained. Insurance was not able to pay for the IV antibiotics. Hence, the patient decided to come as an outpatient clinic for IV Invanz 1 g every day for the next 6 weeks. The patient was advised to stop aspirin and Eliquis, and restart the PICC line next week by the catheterization lab. The labs are as follows: White cell count 9.8, hematocrit 36, platelets 266,000. Sodium 142, potassium 4.9, BUN 30, creatinine 1.6, calcium 10.9. Urine cultures are Escherichia coli. DISCHARGE INSTRUCTIONS: Potassium 40 mEq p.o. b.i.d., metformin 1000 p.o. b.i.d., amiodarone 200 daily, stop Eliquis, nasal spray Flonase 2 sprays at bedtime, gabapentin 100 p.o. b.i.d., Lipitor 80 daily, hold the Plavix, Proscar 5 mg at bedtime, cetirizine 10 daily, Klonopin 0.5 p.o. b.i.d., magnesium oxide 1200 p.o. b.i.d., hold aspirin, Betapace 800 p.o. b.i.d., torsemide 20 mg as directed, discontinue Macrodantin, discontinue Xanax, continue on Lexapro 10 daily, ProAmatine 10 mg p.o. t.i.d. Will follow up as an outpatient clinic. cc: Ross Blount MD [facility]
== END 2020-01-05 11:35 | disposition home or self-care (01) ==
LOC: DIRADM → 4N 09:42
PROVIDERS: ADMIT Internal Medicine; ATTEND Internal Medicine